=== PATIENT | female | born 1975 | race Caucasian/White ===

== ENCOUNTER 2025-03-22 10:55 | Outpatient (AMB) | payer OTHER, SELFPAY ==
--- NOTE | 2025-03-22 11:00 | A.OFFVIS_ITS ---
Vital Signs 03/22/25 11:01 Height 5 ft 5 in Intake Visit Reasons: 6 month migraine Allergies No Known Allergies Allergy (Verified 03/22/25 11:05) Medication List - Last Reconciled 03/22/25 by Terrie Raza CNP feewbuvdxq-enqxttttqvosb-msby 50-325-40 mg 1 tab PO Q6H PRN gemfibrozil 600 mg PO DAILY lorazepam 0.5 mg PO DAILY PRN propranolol ER 160 mg PO DAILY semaglutide (weight loss) (Wegovy) 2.4 mg subcut QWEEK topiramate 50 mg PO BID HPI Comments Details: She was doing okay. Headaches were not bad lately. No headaches this month. She had some headaches in January, likely triggered by allergies and stress with end of school year, but did not need to take butalbital. Stress wand anxiety were okay. Sleep was okay. Migraines with visual aura have decreased in frequency since perimenopause. Hx of mild headaches from teenage years, onset of migraines after the of 2nd daughter. She has 3 children (age 22, 19, and 14). Migraines are preceded by blurry spot in right visual field, followed by a full-blown migraine with pain across the forehead a half hour later. There is associated photophobia, sonophobia, and possibly nausea, no vomiting. Fioricet usually works well for her. Hx of pancreatitis in 09/2018 with high triglycerides, no recurrence. [facility] Medical History (Updated 03/22/25 @ 11:03 by Trerie Raza CNP) Anxiety Tension headache Migraine Family History (Updated 03/22/25 @ 11:06 by Terrie Raza CNP) Father Headache Mother Headache Review of Systems Const Denies chills, Denies daytime sleepiness, Denies difficulty sleeping, Denies fatigue, Denies fever(s), Denies frequent falls, Reports headache(s), Denies increased appetite, Denies poor appetite, Denies snoring, Denies weakness, Denies weight gain and Denies weight loss Eyes Denies loss of vision ENT Denies vertigo, Denies dizziness, Reports headache(s) and Denies neck pain Card Denies chest pain at rest, Denies chest pain with activity, Denies syncope, Denies leg edema, Denies palpitations, Denies dyspnea and Denies dyspnea on exertion Resp Denies cough, Denies dyspnea, Denies dyspnea on exertion and Denies snoring GI Denies abdominal pain, Denies constipation, Denies heartburn, Denies diarrhea and Denies nausea Denies urinary frequency, Denies urinary incontinence and Denies urinary urgency Musc Denies abnormal gait, Denies back pain, Denies myalgias, Denies arthralgias, Denies neck pain, Denies numbness and Denies tingling Neuro Denies abnormal gait, Denies vertigo, Denies dizziness, Denies syncope, Denies frequent falls, Reports headache(s), Denies lack of coordination, Denies loss of vision, Denies memory loss, Denies numbness, Denies Other visual disturbances, Denies restless legs, Denies seizure-like activity, Denies tingling, Denies paresthesias, Denies tremor(s) and Denies weakness Psych Reports anxiety, Denies depression, Denies auditory hallucinations, Denies memory loss and Denies visual hallucinations Endo Denies fatigue and Denies palpitations Physical Exam Const Other: General Appearance:? normal, in no acute distress. Heart:? S1, S2 normal, no murmurs. Lungs:? clear anteriorly and posteriorly. Musculoskeletal:? normal. Extremities:? no edema. Psych:? alert, oriented, cognitive function intact, cooperative with exam. Neuro Other: Abnormal Neurological Findings:?none.? Mental Status: alert and oriented X 3. Normal attention, orientation, memory, and affect. Cranial Nerves: Pupils are equal, round, and reactive to light. External ocular muscles are intact. Visual vieira are full, no ptosis. Face is symmetrical, no facial weakness or droop. Facial sensations are normal. Tongue protrudes in midline. Palate elevates symmetrically. Shoulder shrugging is normal Motor Examination: Normal muscle tone, bulk and strength. No atrophy or fasciculations. No drift of the extended upper extremities. DTR 2+. Plantars are flexor. Straight Leg Raisin degrees. Sensory Exam: Normal light touch, temperature, pinprick, vibration, and joint- position sensations. Rhomberg sign is absent. Coordination: No ataxia. No titubation. Gatdlz-nu-xgnr, irnq-vsmh-kbgd test, and rapid alternating movements were normal. Gait Exam: Within normal limits. Cerebellar Signs: Yruuyr-ms-qqrw and keed-qz-jqrp is normal. No dysdiadochokinesia. Extrapyramidal System: No tremor, rigidity with normal facial expressions. No bradykinesia. No bradyphrenia. Normal arm swing and posture. No propulsion or retropulsion. Speech: Normal. No dysphasia or dysarthria. Assessment & Plan Assessment & Plan (1) Migraine: Code(s): G43.909 - Migraine, unspecified, not intractable, without status migrainosus Category: Medical Qualifiers: Migraine type: unspecified Status migrainosus presence: without status migrainosus Intractability: not intractable Qualified Code(s): G43.909 - Migraine, unspecified, not intractable, without status migrainosus Plan: Continue topiramate 50mg 1 tablet twice a day. Continue propranolol ER 160mg 1 capsule daily. Continue jibmghwslm-KBHV-yfhmstoz 50-325-40mg 1 tablet as needed q6h for headache #30 for 30 days (2) Anxiety: Code(s): F41.9 - Anxiety disorder, unspecified Category: Medical Plan: Continue lorazepam 0.5mg 1 tablet as needed for anxiety daily #10 for 30 days Medications: New svushtoxus-vnwaotlzrjmhk-ltzk 50-325-40 mg 1 tab PO Q6H PRN 30 tabs 2RF migraine 30 days topiramate 50 mg PO BID 180 tabs 1RF 90 days propranolol ER 160 mg PO BEDTIME 90 caps 1RF 90 days lorazepam 0.5 mg PO DAILY PRN 10 tabs 0RF anxiety 30 days Discontinued topiramate Discontinued Reason: Order 50 mg PO BID propranolol ER Discontinued Reason: Order 160 mg PO DAILY pntqsjplyz-kflcwhevljlvx-qezk 50-325-40 mg Discontinued Reason: Order 1 tab PO Q6H PRN lorazepam Discontinued Reason: Order 0.5 mg PO DAILY PRN Coding Level of Care Code Est Pt Level 4 (17395) Diagnoses Migraine without status migrainosus, not intractable, unspecified migraine type G43.909 Migraine type: unspecified Status migrainosus presence: without status migrainosus Intractability: not intractable Anxiety F41.9
--- OUTSIDE RECORDS SUMMARY | 2025-03-22 12:00 | XMS_ITS | Patient Health Record ---
Author Organization [facility] Address [address] [address] Care Team Providers Care Auto Body Repairer Name Role Phone Aimee Garcia Primary Care Provider Daxa Herrmann Unavailable [phone] Reason For Referral No Information Medications Medication SIG (Take, Route, Frequency, Duration) Notes Start Date End Date Status Doxycycline Hyclate 100 MG 1 capsule Ora lly Twice a day; Duration: 5 days 09/09/2019 Active Cephalexin 500 MG 1 tablet Orally Twic e a day; Duration: 5 days Active Amitriptyline HCl Ac tive Gemfibrozil Active Propranolol HCl ER A ctive Social History Tobacco Use: Social History Observation Description Date Details (start date - stop date) Never Smoker NA - NA Tobacco Use/Smoking Question Answer Notes Are you a: nonsmoker Alcohol Screen Question Answer Notes Did you have a drink containing alcohol in the p ast year? Yes Points 0 Interpretation Negative Tobacco use other than smoking: Question Answer Notes Are you an other tobacco user? No Plan Of Treatment No Information Insurance Providers Payer Name Payer Address Payer Phone Subscriber Number Group Number Insured Name Patient Relationship to Insured Coverage Start Date Coverage End Date [facility] [address] [place] [address] [phone] [id number] Yaneth Saldaña Self - patient is the insured Medical (General) History Medical History History ICD Code Anemia Anxiety asthma Headaches/Migraines High blood pressure Surgical History Surgery Date(Month/Year) ovarian cyst resection 12/28
== END 2025-03-22 11:15 | disposition home or self-care (01) ==
LOC: HO.HSM 10:56
PROVIDERS: PCP Internal Medicine; Referring Provider Internal Medicine; Visit Provider Registered Nurse
DX: G43.909 Migraine, unspecified, not intractable, without status migrainosus (principal); F41.9 Anxiety disorder, unspecified
CPT/HCPCS: 99214